=== PATIENT | male | born 1990 | race Caucasian/White ===

== ENCOUNTER 2021-06-01 20:59 | Inpatient (IN) ==
[2021-06-02] MEDS ORDERED: Naloxone 0.4 MG/ML INJ IVP PRN (13:39)
[2021-06-02 14:35] LABS: Basophils % 0.3 %; Eosinophils # 0.1 K/mcL (0.0-0.6); Eosinophils % 0.8 %; Hematocrit 47.7 % (37.5-50.1); Hemoglobin 15.4 g/dL (12.9-16.9); Immature Granulocytes % 0.4 % (0-4); Lymphocytes # 1.6 K/mcL (0.6-4.6); Lymphocytes % 13.4 %; Mean Corpuscular HGB Conc 32.3 g/dL (31.6-35.5); Mean Corpuscular Hemoglobin 27.6 pg (28.0-33.3); Mean Corpuscular Volume 85.6 fL (83.0-100.0); Mean Platelet Volume 10.6 fL (9.4-12.4); Monocytes # 0.7 K/mcL (0.0-1.3); Monocytes % 5.9 %; Neutrophils # 9.5 K/mcL (1.6-8.9); Platelet Count 237 K/mcL (140-400); Red Blood Count 5.57 M/mcL (4.19-5.50); Red Cell Distribution Width 13.9 % (11.5-14.5); Segmented Neutrophils % 79.2 %; White Blood Count 11.9 K/mcL (4.3-11.1)
[2021-06-02 14:36] LABS: INR 1.2; Prothrombin Time 13.2 Seconds (9.4-12.1)
[2021-06-02] MEDS ORDERED: Ipratropium/Albuterol Neb 3 ML IH PRN (14:36)
[2021-06-02] MEDS: 0.9 % Sodium Chloride 1,000 ML IVC SCH ×2 (14:36→21:59)
[2021-06-02 14:38] LABS: Activated Partial Thrombo Time 34.9 Seconds (26.0-36.0)
[2021-06-02] MEDS ORDERED: Perflutren Lipid Microsphere 1.3 ML in 0.9 % Sodium Chloride 8.7 ML IVP PRN (14:45)
[2021-06-02 14:50] LABS: Alanine Aminotransferase 193 Units/L (7-52); Albumin 3.9 g/dL (3.5-5.7); Albumin/Globulin Ratio 1.5 (1.1-2.2); Alkaline Phosphatase 91 Units/L (34-104); Aspartate Amino Transferase 802 Units/L (13-39); BUN/Creatinine Ratio 14 (6-26); Bilirubin,Total 0.7 mg/dL (0.3-1.0); Blood Urea Nitrogen 15 mg/dL (6-20); Carbon Dioxide 22 mEq/L (23-29); Chloride 109 mEq/L (98-107); Globulin 2.6 g/dL (2.4-3.5); Glucose 117 mg/dL (70-105); Magnesium 2.9 mg/dL (1.6-2.6); Osmolality,Calculated 292 (280-300); Phosphorous 2.8 mg/dL (2.7-4.5); Potassium 4.1 mEq/L (3.5-5.1); Sodium 140 mEq/L (136-145); Total Protein 6.5 g/dL (6.4-8.9); eGFR For African Americans > 60 (> 60); eGFR For Non-African Americans > 60 (> 60)
[2021-06-02] MEDS ORDERED: Acetylcysteine 5,000 MG in D5% in Water 500 ML IVC ONE ×2 (14:57→16:45)
[2021-06-02] MEDS: carvediloL 6.25 MG TABLET PO SCH ×2 (15:09→17:51)
[2021-06-02] MEDS ORDERED: Acetylcysteine 15,000 MG in D5% in Water 250 ML IVC ONE (15:30)
[2021-06-02 16:19] LABS: Acetaminophen < 10 mcg/mL (10-20); Creatine Kinase > 20000 Units/L (30-223)
[2021-06-02] MEDS ORDERED: amLODIPine 5 MG TABLET PO STA ×2 (17:58→18:46)
[2021-06-02] MEDS ORDERED: *HR* LORazepam 2 MG/ML VIAL IVP PRN (19:11)
[2021-06-02 19:59] LABS: Albumin 3.8 g/dL (3.5-5.7); Albumin/Globulin Ratio 1.8 (1.1-2.2); Bilirubin,Direct 0.1 mg/dL (0.0-0.2); Bilirubin,Indirect 0.6 mg/dL (0.0-1.0); Bilirubin,Total 0.7 mg/dL (0.3-1.0); Globulin 2.1 g/dL (2.4-3.5); Total Protein 5.9 g/dL (6.4-8.9); Troponin I 0.03 ng/mL (< 0.04)
[2021-06-02] MEDS ORDERED: Acetylcysteine 10,000 MG in D5% in Water 1,000 ML IVC ONE (22:45)
[2021-06-03] MEDS: *HR* Enoxaparin 40 MG/0.4 ML SYRINGE SQ SCH (05:26)
[2021-06-03] MEDS: carvediloL 6.25 MG TABLET PO SCH ×2 (07:53→16:54)
[2021-06-03] MEDS ORDERED: 0.9 % Sodium Chloride 1,000 ML IVC SCH ×2 (09:45→12:57)
[2021-06-03 10:16] LABS: Hematocrit 45.4 % (37.5-50.1); Hemoglobin 15.2 g/dL (12.9-16.9); Mean Corpuscular HGB Conc 33.5 g/dL (31.6-35.5); Mean Corpuscular Hemoglobin 28.3 pg (28.0-33.3); Mean Corpuscular Volume 84.5 fL (83.0-100.0); Mean Platelet Volume 10.4 fL (9.4-12.4); Platelet Count 272 K/mcL (140-400); Red Blood Count 5.37 M/mcL (4.19-5.50); Red Cell Distribution Width 13.4 % (11.5-14.5); White Blood Count 11.5 K/mcL (4.3-11.1)
[2021-06-03 10:28] LABS: INR 1.3
[2021-06-03 10:36] LABS: Alanine Aminotransferase 204 Units/L (7-52); Albumin 3.8 g/dL (3.5-5.7); Albumin/Globulin Ratio 1.5 (1.1-2.2); Alkaline Phosphatase 83 Units/L (34-104); Aspartate Amino Transferase 656 Units/L (13-39); BUN/Creatinine Ratio 13 (6-26); Bilirubin,Total 0.8 mg/dL (0.3-1.0); Blood Urea Nitrogen 13 mg/dL (6-20); Calcium 8.2 mg/dL (8.6-10.3); Carbon Dioxide 24 mEq/L (23-29); Chloride 105 mEq/L (98-107); Globulin 2.5 g/dL (2.4-3.5); Glucose 100 mg/dL (70-105); Osmolality,Calculated 280 (280-300); Potassium 3.6 mEq/L (3.5-5.1); Sodium 135 mEq/L (136-145); Total Protein 6.3 g/dL (6.4-8.9); eGFR For African Americans > 60 (> 60); eGFR For Non-African Americans > 60 (> 60)
[2021-06-03 10:52] LABS: Bilirubin,Urine Negative (Negative); Blood,Urine Large (Negative); Clarity,Urine Clear (Clear); Color,Urine Light-Orange (Yellow); Glucose,Urine (UA) Normal (Normal); Ketones,Urine Trace mg/dL (Negative); Leukocyte Esterase,Urine Negative (Negative); Mucus,Urine Few per lpf (None-Few); Nitrite,Urine Negative (Negative); Protein,Urine 100 mg/dL (Neg-Trace); RBC,Urine 0-3 per hpf (0-3); Specific Gravity,Urine > 1.030 (1.010-1.025); Urobilinogen,Urine Normal (Normal)
[2021-06-03] MEDS ORDERED: 0.9 % Sodium Chloride 1,000 ML IVC ONE (14:47)
[2021-06-03] MEDS: 0.9 % Sodium Chloride 1,000 ML IVC SCH ×2 (15:15→21:53)
[2021-06-03 15:40] LABS: Hepatitis B Surface Antigen Nonreactive (Nonreactive)
[2021-06-03 16:09] LABS: Hepatitis B Core IgM Nonreactive (Nonreactive); Hepatitis C Virus Antibody Nonreactive (Nonreactive)
[2021-06-03 16:10] LABS: Hepatitis A Antibody IgM Nonreactive (Nonreactive)
[2021-06-03] MEDS ORDERED: Acetylcysteine 10,000 MG in D5% in Water 1,000 ML IVC ONE (16:38)
[2021-06-03] MEDS: Topiramate 100 MG TABLET PO SCH (21:52)
[2021-06-03 22:52] LABS: Albumin 3.6 g/dL (3.5-5.7); Albumin/Globulin Ratio 1.6 (1.1-2.2); Bilirubin,Direct 0.1 mg/dL (0.0-0.2); Bilirubin,Indirect 0.5 mg/dL (0.0-1.0); Bilirubin,Total 0.6 mg/dL (0.3-1.0); Globulin 2.2 g/dL (2.4-3.5); Total Protein 5.8 g/dL (6.4-8.9)
[2021-06-04] MEDS: 0.9 % Sodium Chloride 1,000 ML IVC SCH ×7 (02:00→21:08)
[2021-06-04] MEDS: *HR* Enoxaparin 40 MG/0.4 ML SYRINGE SQ SCH (04:57)
[2021-06-04] MEDS ORDERED: *HR* LORazepam 2 MG/ML VIAL IVP ONE ×3 (04:58→20:45)
[2021-06-04 06:30] LABS: Basophils % 0.4 %; Eosinophils # 0.5 K/mcL (0.0-0.6); Eosinophils % 4.8 %; Immature Granulocytes % 1.1 % (0-4); Lymphocytes # 1.9 K/mcL (0.6-4.6); Lymphocytes % 20.6 %; Mean Corpuscular HGB Conc 32.6 g/dL (31.6-35.5); Mean Corpuscular Hemoglobin 27.5 pg (28.0-33.3); Mean Corpuscular Volume 84.5 fL (83.0-100.0); Mean Platelet Volume 10.8 fL (9.4-12.4); Monocytes # 0.8 K/mcL (0.0-1.3); Monocytes % 8.3 %; Neutrophils # 6.1 K/mcL (1.6-8.9); Platelet Count 230 K/mcL (140-400); Red Blood Count 5.09 M/mcL (4.19-5.50); Red Cell Distribution Width 13.3 % (11.5-14.5); Segmented Neutrophils % 64.8 %; White Blood Count 9.4 K/mcL (4.3-11.1)
[2021-06-04 06:39] LABS: INR 1.2; Prothrombin Time 13.1 Seconds (9.4-12.1)
[2021-06-04 08:09] LABS: Alanine Aminotransferase 205 Units/L (7-52); Albumin 3.7 g/dL (3.5-5.7); Albumin/Globulin Ratio 1.6 (1.1-2.2); Alkaline Phosphatase 80 Units/L (34-104); Aspartate Amino Transferase 511 Units/L (13-39); BUN/Creatinine Ratio 13 (6-26); Bilirubin,Total 0.6 mg/dL (0.3-1.0); Blood Urea Nitrogen 11 mg/dL (6-20); Calcium 8.1 mg/dL (8.6-10.3); Carbon Dioxide 20 mEq/L (23-29); Chloride 107 mEq/L (98-107); Creatine Kinase > 20000 Units/L (30-223); Globulin 2.3 g/dL (2.4-3.5); Glucose 95 mg/dL (70-105); Osmolality,Calculated 279 (280-300); Potassium 3.6 mEq/L (3.5-5.1); Sodium 135 mEq/L (136-145); eGFR For African Americans > 60 (> 60); eGFR For Non-African Americans > 60 (> 60)
[2021-06-04] MEDS: Topiramate 100 MG TABLET PO SCH ×2 (08:52→21:08)
[2021-06-04] MEDS: carvediloL 6.25 MG TABLET PO SCH ×2 (08:53→17:09)
[2021-06-04 18:36] LABS: Alanine Aminotransferase 203 Units/L (7-52); Albumin 3.7 g/dL (3.5-5.7); Albumin/Globulin Ratio 1.7 (1.1-2.2); Alkaline Phosphatase 76 Units/L (34-104); Aspartate Amino Transferase 411 Units/L (13-39); Bilirubin,Direct 0.1 mg/dL (0.0-0.2); Bilirubin,Indirect 0.4 mg/dL (0.0-1.0); Bilirubin,Total 0.5 mg/dL (0.3-1.0); Creatine Kinase > 20000 Units/L (30-223); Globulin 2.2 g/dL (2.4-3.5); Total Protein 5.9 g/dL (6.4-8.9)
[2021-06-04] MEDS ORDERED: Melatonin 3 MG TABLET PO PRN (21:31)
[2021-06-05] MEDS: 0.9 % Sodium Chloride 1,000 ML IVC SCH ×3 (02:30→06:32)
[2021-06-05] MEDS ORDERED: *HR* LORazepam 2 MG/ML VIAL IVP ONE (02:52)
[2021-06-05 06:05] LABS: Basophils % 0.4 %; Eosinophils # 0.4 K/mcL (0.0-0.6); Eosinophils % 4.5 %; Hematocrit 42.6 % (37.5-50.1); Hemoglobin 13.8 g/dL (12.9-16.9); Immature Granulocytes % 1.2 % (0-4); Lymphocytes # 1.9 K/mcL (0.6-4.6); Mean Corpuscular HGB Conc 32.4 g/dL (31.6-35.5); Mean Corpuscular Hemoglobin 27.7 pg (28.0-33.3); Mean Corpuscular Volume 85.5 fL (83.0-100.0); Mean Platelet Volume 10.8 fL (9.4-12.4); Monocytes # 0.8 K/mcL (0.0-1.3); Monocytes % 7.7 %; Neutrophils # 6.6 K/mcL (1.6-8.9); Platelet Count 225 K/mcL (140-400); Red Blood Count 4.98 M/mcL (4.19-5.50); Red Cell Distribution Width 13.2 % (11.5-14.5); Segmented Neutrophils % 67.2 %; White Blood Count 9.9 K/mcL (4.3-11.1)
[2021-06-05 06:25] LABS: Albumin 3.7 g/dL (3.5-5.7); Albumin/Globulin Ratio 1.8 (1.1-2.2); Bilirubin,Direct 0.1 mg/dL (0.0-0.2); Bilirubin,Indirect 0.4 mg/dL (0.0-1.0); Bilirubin,Total 0.5 mg/dL (0.3-1.0); Globulin 2.1 g/dL (2.4-3.5); Total Protein 5.8 g/dL (6.4-8.9)
[2021-06-05] MEDS: *HR* Enoxaparin 40 MG/0.4 ML SYRINGE SQ SCH (06:33)
[2021-06-05 06:44] LABS: Alanine Aminotransferase 208 Units/L (7-52); Albumin 3.7 g/dL (3.5-5.7); Albumin/Globulin Ratio 1.8 (1.1-2.2); Alkaline Phosphatase 81 Units/L (34-104); Aspartate Amino Transferase 317 Units/L (13-39); BUN/Creatinine Ratio 11 (6-26); Bilirubin,Total 0.5 mg/dL (0.3-1.0); Blood Urea Nitrogen 10 mg/dL (6-20); Calcium 8.2 mg/dL (8.6-10.3); Carbon Dioxide 20 mEq/L (23-29); Chloride 109 mEq/L (98-107); Creatine Kinase 13028 Units/L (30-223); Globulin 2.1 g/dL (2.4-3.5); Glucose 101 mg/dL (70-105); Osmolality,Calculated 283 (280-300); Potassium 3.7 mEq/L (3.5-5.1); Sodium 137 mEq/L (136-145); Total Protein 5.8 g/dL (6.4-8.9); eGFR For African Americans > 60 (> 60); eGFR For Non-African Americans > 60 (> 60)
[2021-06-05 07:07] VITALS: BP 161/110
[2021-06-05] MEDS ORDERED: amLODIPine 5 MG TABLET PO SCH (07:51)
[2021-06-05 08:24] VITALS: PULSE 91; TEMP 97.7; O2SAT 95
[2021-06-05] MEDS: Topiramate 100 MG TABLET PO SCH (09:24)
[2021-06-05] MEDS: carvediloL 6.25 MG TABLET PO SCH ×2 (09:24→17:29)
== END 2021-06-05 18:30 | disposition home or self-care (01) | DRG 812 ==
LOC: 2NENU → SUATTDRO 06-02 11:56
PROVIDERS: ADMIT Internal Medicine; ATTEND Student in an Organized Health Care Education/Training Program